=== PATIENT | male | born 1990 | race Caucasian/White ===

== ENCOUNTER 2018-01-03 23:47 | Emergency (ER) | payer OTHER ==
--- NOTE | 2018-01-03 23:57 | ED ---
General Adult HPI - General Stated complaint: overdose Time Seen by Provider: 01/03/18 23:56 - History of Present Illness Initial comments: A 7-year-old male with past medical history of depression and anxiety as well as off 1 antitrypsin deficiency who presents to the emergency department today from outside facility for possible ingestion of Tylenol. Patient reports that he became very upset and took a handful of [id number] Tylenol. Patient is uncertain the number he did. He estimates ingestion time was between 9 and 9 :30 PM on January 03. He was initially evaluated at outside emergency department, he was unable to drink the oral charcoal, an NG tube was placed and he was given charcoal. Initial level was obtained at 10:45 PM which is approximately an hour and 15 minutes after ingestion. Initial Tylenol level was 45. That facility did not have psychiatric services available and transferred him here for further management and psychiatric evaluation. In route to the hospital patient did have an episode of vomiting, he did not aspirate or have any choking. On arrival the patient's only complaint is discomfort due to NG tube. - Related Data Allergies Allergy/AdvReac Type Severity Reaction Status Date / Time No Known Allergies Allergy Verified 01/04/18 00:07 Review of Systems ROS Statement: Those systems with pertinent positive or pertinent negative responses have been documented in the HPI. ROS Other: All systems not noted in ROS Statement are negative. Course Vital Signs 01/04/18 01/04/18 01/04/18 00:02 01:38 04:27 Temperature 98.0 F Pulse Rate 59 L 91 66 Respiratory 16 18 18 Rate Blood Pressure 133/85 127/87 141/60 O2 Sat by Pulse 97 96 97 Oximetry EKG Findings - EKG Comments: EKG Findings:: EKG obtained at 12:22 AM, rhythm is sinus, rate is 56 sinus bradycardia, normal axis, normal intervals W[place] 154, QRS 84, QTC is 43. There is no QRS widening or QTC prolongation which would be concerning for other toxicologic ingestions. Medical Decision Making - Medical Decision Making Patient was seen and evaluated, history was obtained from the patient and review of medical record Patient with a Tylenol ingestion between 9 and 9:30 PM, initial Tylenol level XLV, patient was given charcoal via NG tube due to his unwillingness to take oral charcoal Arrival the patient has a bloody nose and is complaining of discomfort due to the NG tube, NG tube was removed The patient vomiting a chest x-ray was ordered. Had no acute findings. EKG was unremarkable Repeat labs were ordered for 1 AM which would be 4 hours after Tylenol ingestion. Repeat labs resulted with a Tylenol level of 22. At this time there is no indication for treatment as this is not a toxic level of Tylenol. Patient is medically cleared for evaluation by psychiatry. Patient was evaluated by psychiatric nurse. At this time the patient's denying any homicidal or suicidal intent. He admits to taking a handful of Tylenol. He admits to having an emotional worse. He denies any suicidal thoughts. At this time psychiatry recommends discharge home and outpatient counseling. Patient and mother are agreeable to this. Patient discharged home in stable condition. - Lab Data Result diagrams: 01/04/18 01:31 Lab Results 01/04/18 01/04/18 01/04/18 Range/Units 01:31 01:31 01:31 PT 10.5 (9.0-12.0) sec INR 1.1 (<1.2) APTT 25.3 (22.0-30.0) sec Sodium 141 (137-145) mmol/L Potassium 3.5 (3.5-5.1) mmol/L Chloride 107 (98-107) mmol/L Carbon Dioxide 25 (22-30) mmol/L Anion Gap 9 mmol/L BUN 14 (9-20) mg/dL Creatinine 0.81 (0.66-1.25) mg/dL Est GFR (CKD-EPI)AfAm >90 (>60 ml/min/1.73 sqM) Est GFR (CKD-EPI)NonAf >90 (>60 ml/min/1.73 sqM) Glucose 102 H (74-99) mg/dL Calcium 9.2 (8.4-10.2) mg/dL Total Bilirubin 1.9 H (0.2-1.3) mg/dL AST 20 (17-59) U/L ALT 40 (21-72) U/L Alkaline Phosphatase 59 (38-126) U/L Creatine Kinase 163 (55-170) U/L Total Protein 7.0 (6.3-8.2) g/dL Albumin 4.3 (3.5-5.0) g/dL Salicylates <1.0 mg/dL Urine Opiates Screen Not Detected (NotDetected) Ur Oxycodone Screen Detected H (NotDetected) Urine Methadone Screen Not Detected (NotDetected) Ur Propoxyphene Screen Not Detected (NotDetected) Acetaminophen ug/mL Ur Barbiturates Screen Not Detected (NotDetected) U Tricyclic Antidepress Not Detected (NotDetected) Ur Phencyclidine Scrn Not Detected (NotDetected) Ur Amphetamines Screen Not Detected (NotDetected) U Methamphetamines Scrn Not Detected (NotDetected) U Benzodiazepines Scrn Not Detected (NotDetected) Urine Cocaine Screen Not Detected (NotDetected) U Marijuana (THC) Screen Detected H (NotDetected) Acetone, Qual Negative (Negative) 01/04/18 Range/Units 01:31 PT (9.0-12.0) sec INR (<1.2) APTT (22.0-30.0) sec Sodium (137-145) mmol/L Potassium (3.5-5.1) mmol/L Chloride (98-107) mmol/L Carbon Dioxide (22-30) mmol/L Anion Gap mmol/L BUN (9-20) mg/dL Creatinine (0.66-1.25) mg/dL Est GFR (CKD-EPI)AfAm (>60 ml/min/1.73 sqM) Est GFR (CKD-EPI)NonAf (>60 ml/min/1.73 sqM) Glucose (74-99) mg/dL Calcium (8.4-10.2) mg/dL Total Bilirubin (0.2-1.3) mg/dL AST (17-59) U/L ALT (21-72) U/L Alkaline Phosphatase (38-126) U/L Creatine Kinase (55-170) U/L Total Protein (6.3-8.2) g/dL Albumin (3.5-5.0) g/dL Salicylates mg/dL Urine Opiates Screen (NotDetected) Ur Oxycodone Screen (NotDetected) Urine Methadone Screen (NotDetected) Ur Propoxyphene Screen (NotDetected) Acetaminophen 22.6 ug/mL Ur Barbiturates Screen (NotDetected) U Tricyclic Antidepress (NotDetected) Ur Phencyclidine Scrn (NotDetected) Ur Amphetamines Screen (NotDetected) U Methamphetamines Scrn (NotDetected) U Benzodiazepines Scrn (NotDetected) Urine Cocaine Screen (NotDetected) U Marijuana (THC) Screen (NotDetected) Acetone, Qual (Negative) Disposition Clinical Impression: Acetaminophen overdose, Depression Disposition: HOME SELF-CARE Condition: Stable Is patient prescribed a controlled substance at d/c from ED?: No Referrals: None,Stated [Primary Care Provider] - 1-2 days Time of Disposition: 04:54
--- NOTE | 2018-01-04 01:04 | XR ---
EXAMINATION TYPE: XR chest 1V portable DATE OF EXAM: 01/04/2018 COMPARISON: NONE HISTORY: Overdose and cough TECHNIQUE: Single frontal view of the chest is obtained. FINDINGS: Heart and mediastinum are normal. Lungs are clear. Diaphragm is normal. Bony thorax appear s normal. IMPRESSION: Normal chest
[2018-01-04 02:03] LABS: ALT 40 U/L (21-72); AST 20 U/L (17-59); Albumin 4.3 g/dL (3.5-5.0); Alkaline Phosphatase 59 U/L (38-126); Anion Gap 9 mmol/L; Blood Urea Nitrogen 14 mg/dL (9-20); Calcium 9.2 mg/dL (8.4-10.2); Carbon Dioxide 25 mmol/L (22-30); Chloride 107 mmol/L (98-107); Creatine Kinase 163 U/L (55-170); Glucose 102 mg/dL (74-99); Potassium 3.5 mmol/L (3.5-5.1); Salicylate <1.0 mg/dL; Sodium 141 mmol/L (137-145); Total Bilirubin 1.9 mg/dL (0.2-1.3)
[2018-01-04 02:10] LABS: INR 1.1 (<1.2); Partial Thromboplastin Time 25.3 sec (22.0-30.0); Prothrombin Time 10.5 sec (9.0-12.0)
[2018-01-04 02:21] LABS: Amphetamine Screen,Urine Not Detected (NotDetected); Benzodiazepines Screen,Urine Not Detected (NotDetected); Cocaine Screen,Urine Not Detected (NotDetected); Opiate Screen,Urine Not Detected (NotDetected); Phencyclidine Screen,Urine Not Detected (NotDetected); Urn Cannabinoid Scrn Detected (NotDetected)
[2018-01-04 02:22] LABS: Barbiturate Screen,Urine Not Detected (NotDetected); Methadone Screen, Urine Not Detected (NotDetected); Oxycodone Screen, Urine Detected (NotDetected); Tricyclic Antidepressant,Urine Not Detected (NotDetected)
[2018-01-04 05:05] VITALS: BP 117/70; PULSE 60; RESP 19; TEMP 97
== END 2018-01-04 05:16 | disposition home or self-care (01) ==
LOC: EC 23:47
DX: T39.1X2A Poisoning by 4-Aminophenol derivatives, intentional self-harm, initial encounter (principal); F32.9 Major depressive disorder, single episode, unspecified; F41.9 Anxiety disorder, unspecified
CPT/HCPCS: 36415; 71045; 80053; 80306; 82009; 82075; 82550; 83520; 85610; 85730; 93005; 99285